=== PATIENT | male | born 1970 | race Caucasian/White ===

== ENCOUNTER → 2016-12-06 | Outpatient (CLI) | payer OTHER ==
--- NOTE | 2016-12-06 18:31 | DX ---
Lumbar spine 4 views of flexion and extension History: Low back pain. Comparison: None available. Findings: Mild leftward curvature of the thoracolumbar junction is present. Trace retrolisthesis of L 1 on L2 does not change significantly with neutral flexion or extension positioning. 3 mm retrolisthe sis of L2 on L3 in neutral and flexion positioning measures 4 to 5 mm with extension. Trace retrolist hesis of L3 on L4 with extension is not present with neutral or flexion positioning. Probable old mil d compression fracture is noted at T11. Mild vertebral spondylosis is present throughout the lumbar s pine. Impression: 1. Mild variation in retrolisthesis of L2 on L3 and L3 on L4, which could be related to instability. 2. Likely old mild compression fracture of T11.
== END ==
LOC: CIMAGING 10:54
PROVIDERS: ATTEND Family Medicine
DX: M47.896 Other spondylosis, lumbar region (principal); M54.5 Low back pain
CPT/HCPCS: 72100-PO